=== PATIENT | female | born 1995 | race Caucasian/White ===

== ENCOUNTER 2018-10-27 18:47 | Emergency (ER) | payer MEDICAID, OTHER ==
[~2018-10-27] VITALS: Ht 162.6 cm; Wt 76.4 kg
[~2018-10-27 18:47] MED LIST: PREN-385 PO
[2018-10-27 18:59] VITALS: BP 136/94
--- NOTE | 2018-10-27 19:01 | NUR ---
PT GIVEN A CUP TO PROVIDE URINE SAMPLE.
--- NOTE | 2018-10-27 21:02 | NUR ---
PT AMBULATED TO [facility].
--- NOTE | 2018-10-27 21:05 | NUR ---
23/F PRESENTS TO ED, C/O 04/27 CONSTANT FRONTAL AND POSTERIOR HEADACHE, X3 DAYS. PT REPORTS INTERMITTENT DIZZINESS. 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 PT DENIES TRAUMA, N/V OR LIGHT SENSITIVITY. AOX4, GCS 15, PERRLA, RR EVEN AND UNLABORED. DID NOT TAKE ANY PAIN MEDICATION. DENIES MED HX OR RX.
[2018-10-27] MEDS ORDERED: IBUPROFEN 800 MG TAB PO ONE (22:20)
[2018-10-27 22:48] VITALS: BP 122/80
== END 2018-10-27 22:46 | disposition home or self-care (01) ==
LOC: MED 18:47
DX: R51 Headache (principal); Z79.899 Other long term (current) drug therapy
CPT/HCPCS: 81025; 99282

== ENCOUNTER 2019-04-18 18:12 | Observation (INO) | payer OTHER ==
[~2019-04-18] VITALS: Ht 149.9 cm; Wt 85.8 kg
[2019-04-18 18:19] VITALS: BP 109/59
[2019-04-18 18:53] VITALS: BP 115/72
== END 2019-04-18 20:00 | disposition home health service (06) ==
LOC: MED 18:12 → MLD 18:44 → INTOOBSV 18:44 → MLD 18:51 → UNDODISIN 20:00
PROVIDERS: ADMIT Obstetrics & Gynecology; ATTEND Obstetrics & Gynecology
DX: O26.892 Other specified pregnancy related conditions, second trimester (principal); R10.2 Pelvic and perineal pain; Z3A.22 22 weeks gestation of pregnancy
CPT/HCPCS: 99281; G0378

== ENCOUNTER 2019-06-27 17:48 | Observation (INO) | payer OTHER ==
[~2019-06-27] VITALS: Ht 152.4 cm; Wt 87.5 kg
== END 2019-06-27 20:20 | disposition home or self-care (01) ==
LOC: MLD 17:48
PROVIDERS: ADMIT Obstetrics & Gynecology; ATTEND Obstetrics & Gynecology
DX: O36.8130 Decreased fetal movements, third trimester, not applicable or unspecified (principal); Z3A.30 30 weeks gestation of pregnancy
CPT/HCPCS: 76819; 81000; G0378; Q0092

== ENCOUNTER 2019-08-05 14:21 | Observation (INO) | payer OTHER ==
[~2019-08-05] VITALS: Ht 152.4 cm; Wt 90.7 kg
[2019-08-05 15:03] VITALS: BP 115/62
== END 2019-08-05 19:25 | disposition home or self-care (01) ==
LOC: MLD 14:21
PROVIDERS: ADMIT Obstetrics & Gynecology; ATTEND Obstetrics & Gynecology
DX: O32.2XX0 Maternal care for transverse and oblique lie, not applicable or unspecified (principal); Z3A.37 37 weeks gestation of pregnancy
CPT/HCPCS: 59025; 76805; 81000; G0378; Q0092

== ENCOUNTER 2019-08-08 20:50 | Observation (INO) | payer OTHER ==
[~2019-08-08] VITALS: Ht 152.4 cm; Wt 90.3 kg
== END 2019-08-08 23:00 | disposition home or self-care (01) ==
LOC: MLD 20:50
PROVIDERS: ADMIT Obstetrics & Gynecology; ATTEND Obstetrics & Gynecology
DX: O42.92 Full-term premature rupture of membranes, unspecified as to length of time between rupture and onset of labor (principal); Z3A.38 38 weeks gestation of pregnancy
CPT/HCPCS: 76815; G0378; Q0092

== ENCOUNTER 2019-08-12 16:48 | Inpatient (IN) | payer OTHER ==
[~2019-08-12] VITALS: Ht 152.4 cm; Wt 90.7 kg
[2019-08-12] MEDS ORDERED: OXYTOCIN 10 UNITS/ML VIAL IM SCH (17:20)
[2019-08-12] MEDS ORDERED: CARBOPROST 250 MCG/ML AMP IM PRN (17:20)
[2019-08-12] MEDS ORDERED: PROMETHAZINE 25 MG/ML VIAL IVP PRN (17:20)
[2019-08-12] MEDS ORDERED: NALBUPHINE 10 MG/ML AMP IVP PRN (17:20)
[2019-08-12] MEDS ORDERED: METHYLERGONOVINE 0.2 MG/ML AMP IM PRN (17:20)
[2019-08-12] MEDS ORDERED: AMPICILLIN 2,000 MG in NACL 0.9% MINI-BAG PLUS 100 ML IV SCH (17:35)
[2019-08-12 17:50] LABS: BASOPHILS % (AUTO) 0.4 % (0.0-2.0); EOSINOPHILS % (AUTO) 0.6 % (0.0-4.0); HEMATOCRIT 35.8 % (36-48); HEMOGLOBIN 11.5 g/dL (12.0-16.0); LYMPHOCYTES # (AUTO) 2.2 K/uL (2.5-16.5); LYMPHOCYTES % (AUTO) 28.5 % (20.5-51.1); MEAN CORPUSCULAR HEMOGLOBIN 26 pg (27-31); MEAN CORPUSCULAR HGB CONC 32 g/dL (33-37); MEAN CORPUSCULAR VOLUME 81.4 fL (80-94); MONOCYTES # (AUTO) 0.5 K/uL (0.8-1.0); MONOCYTES % (AUTO) 6.6 % (1.7-9.3); NEUTROPHILS # (AUTO) 4.8 K/uL (1.8-7.7); NEUTROPHILS % (AUTO) 63.9 % (42.2-75.2); PLATELET COUNT (AUTO) 210 K/uL (140-450); RED BLOOD CELL COUNT(AUTO) 4.39 MIL/uL (4.20-5.40); RED CELL DISTRIBUTION WIDTH 15.6 % (11.6-13.7); WHITE BLOOD COUNT (AUTO) 7.6 K/uL (4.8-10.8)
[2019-08-12] MEDS ORDERED: AMPICILLIN 2,000 MG VIAL ONE (17:59)
[2019-08-12 18:00] LABS: ANION GAP 13.6 (8-16); CARBON DIOXIDE 24.1 mmol/L (21-32); CREATININE 0.5 mg/dL (0.6-1.3); POTASSIUM 3.7 mmol/L (3.5-5.1)
[2019-08-12] MEDS: LACTATED RINGERS 1,000 ML IV SCH (18:00)
[2019-08-12 18:06] LABS: ALBUMIN 2.7 g/dL (3.4-5.0); TOTAL BILIRUBIN 0.2 mg/dL (0.0-1.0)
[2019-08-12 18:08] VITALS: BP 108/66
[2019-08-12] MEDS ORDERED: MAG SULF 20 GM/H2O PREMIX DRIP 500 ML IV ONE (19:42)
[2019-08-12] MEDS ORDERED: AMPICILLIN 1,000 MG VIAL ONE (21:36)
[2019-08-12] MEDS: AMPICILLIN 1,000 MG in NACL 0.9% MINI-BAG PLUS 50 ML IV SCH (21:40)
[2019-08-12 21:58] LABS: APPEARANCE,URINE CLEAR (CLEAR); BILIRUBIN,URINE NEGATIVE (NEGATIVE); BLOOD, URINE TRACE-L (NEGATIVE); COLOR,URINE YELLOW (YELLOW); LEUKOCYTE ESTERASE ,URINE NEGATIVE (NEGATIVE); NITRITE, URINE NEGATIVE (NEGATIVE); UGLUCOSE NEGATIVE (NEGATIVE)
[2019-08-12 22:11] LABS: RBC,URINE 0-5 /HPF (0-5)
[2019-08-12 22:12] LABS: WBC,URINE NONE SEEN /HPF (0-5)
[2019-08-13] MEDS ORDERED: TERBUTALINE 1 MG/ML VIAL SUBQ ONE (00:20)
[2019-08-13] MEDS: TERBUTALINE 1 MG/ML VIAL SUBQ SCH ×2 (00:33→01:21)
[2019-08-13] MEDS ORDERED: AMPICILLIN 1,000 MG VIAL ONE ×3 (00:54→08:31)
[2019-08-13] MEDS: AMPICILLIN 1,000 MG in NACL 0.9% MINI-BAG PLUS 50 ML IV SCH ×3 (01:22→08:42)
[2019-08-13] MEDS ORDERED: TERBUTALINE 2.5 MG TAB ONE ×2 (04:01→08:30)
[2019-08-13] MEDS: TERBUTALINE 2.5 MG TAB PO SCH ×2 (04:04→08:38)
[2019-08-13] MEDS: LACTATED RINGERS 1,000 ML IV SCH ×2 (04:04→13:02)
[2019-08-13] MEDS ORDERED: CITRIC ACID/SODIUM CITRATE 30 ML UDC PO SCH (13:20)
[2019-08-13] MEDS ORDERED: CITRIC ACID/SODIUM CITRATE 30 ML UDC ONE (13:22)
[2019-08-13] MEDS ORDERED: PHENYLEPHRINE 10 MG/ML VIAL ONE (15:27)
[2019-08-13] MEDS ORDERED: METOCLOPRAMIDE 10 MG/2 ML INJ VIAL ONE (15:27)
[2019-08-13] MEDS ORDERED: ONDANSETRON 4 MG/2 ML VIAL ONE (15:27)
[2019-08-13] MEDS ORDERED: MORPHINE PRES FREE 10 MG/10 ML AMP IV ONE (15:29)
[2019-08-13] MEDS ORDERED: ceFAZolin 1,000 MG VIAL IVP ONE (15:45)
[2019-08-13] MEDS ORDERED: diphenhydrAMINE 50 MG/ML VIAL ONE (16:03)
[2019-08-13] MEDS ORDERED: OXYTOCIN 20 UNITS/LR PREMIX 1,000 ML IV ONE (16:03)
[2019-08-13] MEDS ORDERED: OXYTOCIN 20 UNITS in LACTATED RINGERS 1,000 ML IV SCH ×2 (16:04→18:12)
[2019-08-13] MEDS ORDERED: ONDANSETRON 4 MG/2 ML VIAL IVP PRN (16:05)
[2019-08-13] MEDS ORDERED: NALOXONE 0.4 MG/ML VIAL IVP PRN ×2 (16:05)
[2019-08-13] MEDS ORDERED: KETOROLAC 30 MG/ML VIAL IVP PRN ×2 (16:05→18:15)
[2019-08-13] MEDS ORDERED: diphenhydrAMINE 50 MG/ML VIAL IVP PRN (16:05)
[2019-08-13] MEDS ORDERED: HYDROmorphone 1 MG/ML AMP IVP PRN (18:15)
[2019-08-13] MEDS ORDERED: MEASLES, MUMPS, AND RUBELLA 1 VIAL SQVAC PRN (18:15)
[2019-08-14] MEDS ORDERED: OXYTOCIN 20 UNITS/LR PREMIX 1,000 ML IV ONE (05:43)
[2019-08-14 08:35] LABS: BASOPHILS % (AUTO) 0.2 % (0.0-2.0); EOSINOPHILS % (AUTO) 0.1 % (0.0-4.0); HEMATOCRIT 32.3 % (36-48); HEMOGLOBIN 10.6 g/dL (12.0-16.0); LYMPHOCYTES # (AUTO) 1.6 K/uL (2.5-16.5); LYMPHOCYTES % (AUTO) 16.3 % (20.5-51.1); MEAN CORPUSCULAR HEMOGLOBIN 27 pg (27-31); MEAN CORPUSCULAR HGB CONC 33 g/dL (33-37); MEAN CORPUSCULAR VOLUME 81.2 fL (80-94); MONOCYTES # (AUTO) 0.7 K/uL (0.8-1.0); MONOCYTES % (AUTO) 6.7 % (1.7-9.3); NEUTROPHILS # (AUTO) 7.4 K/uL (1.8-7.7); NEUTROPHILS % (AUTO) 76.7 % (42.2-75.2); PLATELET COUNT (AUTO) 162 K/uL (140-450); RED BLOOD CELL COUNT(AUTO) 3.98 MIL/uL (4.20-5.40); RED CELL DISTRIBUTION WIDTH 15.8 % (11.6-13.7); WHITE BLOOD COUNT (AUTO) 9.7 K/uL (4.8-10.8)
[2019-08-14] MEDS ORDERED: ACETAMINOPHEN 325 MG TAB PO PRN (22:00)
[2019-08-15] MEDS ORDERED: SODIUM PHOSPHATE 118 ML ENEM RC PRN (09:00)
[2019-08-15] MEDS: SIMETHICONE 80 MG TAB.CHEW PO SCH ×3 (09:23→18:13)
[2019-08-15] MEDS: BISACODYL 5 MG TABEC PO SCH (09:24)
[2019-08-15] MEDS: DOCUSATE SODIUM 100 MG GELCAP PO SCH (09:27)
[2019-08-15] MEDS: IBUPROFEN 600 MG TAB PO PRN (12:46)
[2019-08-15] MEDS ORDERED: INFLUENZA VACCINE QUAD 0.5 ML SYR IMVAC PRN (21:00)
[2019-08-16] MEDS: IBUPROFEN 600 MG TAB PO PRN ×2 (05:48→21:03)
[2019-08-17] MEDS: BISACODYL 5 MG TABEC PO SCH (09:07)
[2019-08-17] MEDS: DOCUSATE SODIUM 100 MG GELCAP PO SCH (09:07)
[2019-08-17] MEDS: SIMETHICONE 80 MG TAB.CHEW PO SCH (09:07)
[2019-08-17] MEDS ORDERED: FERR325E14 PO (13:04)
[2019-08-17] MEDS ORDERED: IBUP-1842 PO (13:06)
[2019-08-17] MEDS ORDERED: IBUP-2213 PO (13:06)
== END 2019-08-17 14:45 | disposition home or self-care (01) | DRG 540 ==
LOC: MFCC 16:48 → MLD 17:37 → MFCC 08-13 16:05
PROVIDERS: ADMIT Obstetrics & Gynecology; ATTEND Obstetrics & Gynecology
PROC: 3E0234Z Introduction of Serum, Toxoid and Vaccine into Muscle, Percutaneous Approach (ICD-10-PCS; 2019-08-13)
PROC: 10D00Z1 Extraction of Products of Conception, Low, Open Approach (ICD-10-PCS; principal; 2019-08-13 14:00)
DX: O34.03 Maternal care for unspecified congenital malformation of uterus, third trimester (principal); R71.0 Precipitous drop in hematocrit; O24.429 Gestational diabetes mellitus in childbirth, unspecified control; O99.824 Streptococcus B carrier state complicating childbirth; O32.1XX0 Maternal care for breech presentation, not applicable or unspecified; O40.3XX0 Polyhydramnios, third trimester, not applicable or unspecified; Q51.3 Bicornate uterus; Z37.0 Single live birth; Z3A.39 39 weeks gestation of pregnancy; Z23 Encounter for immunization
CPT/HCPCS: 36415; 51702; 76815; 80053; 81001; 85025; 86592; 86762; 86886; 86900; 86901; 87086; 87340; 90707; 90715; J0290; J0690; J1200; J2270; J2370; J2405; J2590; J2765; J3105; J3475; J7060; J7120; Q0092

== ENCOUNTER 2020-03-20 14:11 | Emergency (ER) | payer OTHER, SELFPAY ==
[~2020-03-20] VITALS: Ht 152.4 cm; Wt 79.4 kg
[~2020-03-20 14:11] MED LIST changes: +FERR325E14 PO; +IBUP-1842 PO; -PREN-385 PO
[2020-03-20 14:22] VITALS: BP 141/76
--- NOTE | 2020-03-20 14:27 | NUR ---
WAIT AT TENT. REPOTED TO CHARGE NURSE.
[2020-03-20] MEDS ORDERED: ACETAMINOPHEN EXTRA STRENGTH 500 MG TAB PO ONE (15:20)
--- NOTE | 2020-03-20 15:39 | NUR ---
C/O HEADACHE WITH FEVER AND BODYACHES X 2 DAYS DENIES N/V/D---FULL CLEAR SPEECH,
[2020-03-20 15:40] VITALS: BP 132/81
--- NOTE | 2020-03-20 15:41 | NUR ---
Patient discharged with v/s stable. Written and verbal after care instructions given and explained. Patient verbalized understanding. Ambulatory with steady gait. All questions addressed prior to discharge. Advised to follow up with PMD.
== END 2020-03-20 15:41 | disposition home or self-care (01) ==
LOC: EEVIPCON 14:11 → MED 14:11
DX: R03.0 Elevated blood-pressure reading, without diagnosis of hypertension (principal); Z20.828 Contact with and (suspected) exposure to other viral communicable diseases; Z98.890 Other specified postprocedural states; Z79.899 Other long term (current) drug therapy
CPT/HCPCS: 99283; C9803; U0003; 36415

== ENCOUNTER 2022-04-30 17:46 | Emergency (ER) | payer MEDICAID, OTHER ==
[~2022-04-30] VITALS: Ht 152.4 cm; Wt 87.1 kg
[2022-04-30 18:00] VITALS: BP 122/77
--- NOTE | 2022-04-30 18:23 | NUR ---
L&D NURSE DOING HEART TONES IN TRIAGE PER DR DESAI
[2022-04-30 19:00] LABS: BASOPHILS % (AUTO) 0.4 % (0.0-2.0); EOSINOPHILS # (AUTO) 0.1 K/uL (0-0.4); EOSINOPHILS % (AUTO) 0.7 % (0.0-4.0); HEMATOCRIT 40.1 % (36-48); HEMOGLOBIN 13.3 g/dL (12.0-16.0); LYMPHOCYTES # (AUTO) 2.3 K/uL (2.5-16.5); LYMPHOCYTES % (AUTO) 29.1 % (20.5-51.1); MEAN CORPUSCULAR HEMOGLOBIN 28 pg (27-31); MEAN CORPUSCULAR HGB CONC 33 g/dL (33-37); MEAN CORPUSCULAR VOLUME 83.9 fL (80-94); MONOCYTES # (AUTO) 0.4 K/uL (0.8-1.0); MONOCYTES % (AUTO) 5.3 % (1.7-9.3); NEUTROPHILS # (AUTO) 5.1 K/uL (1.8-7.7); NEUTROPHILS % (AUTO) 64.5 % (42.2-75.2); PLATELET COUNT (AUTO) 278 K/uL (140-450); RED BLOOD CELL COUNT(AUTO) 4.78 MIL/uL (4.20-5.40); RED CELL DISTRIBUTION WIDTH 12.5 % (11.6-13.7); WHITE BLOOD COUNT (AUTO) 7.9 K/uL (4.8-10.8)
[2022-04-30 19:26] LABS: BILIRUBIN,URINE NEGATIVE (NEGATIVE); BLOOD, URINE 3+ (NEGATIVE); COLOR,URINE YELLOW (YELLOW); LEUKOCYTE ESTERASE ,URINE TRACE (NEGATIVE); NITRITE, URINE NEGATIVE (NEGATIVE); UGLUCOSE NEGATIVE (NEGATIVE)
[2022-04-30 19:27] LABS: APPEARANCE,URINE HAZY (CLEAR)
[2022-04-30 19:43] LABS: RBC,URINE 20-50 /HPF (0-5)
--- NOTE | 2022-04-30 22:42 | NUR ---
Dr. Murry examining patient.
[2022-04-30] MEDS ORDERED: NITR100C7 PO (23:06)
[2022-04-30 23:15] VITALS: BP 118/68
== END 2022-04-30 23:15 | disposition home or self-care (01) ==
LOC: MED 17:46
DX: O20.0 Threatened abortion (principal); O98.811 Other maternal infectious and parasitic diseases complicating pregnancy, first trimester; R82.71 Bacteriuria; Z3A.12 12 weeks gestation of pregnancy; Z79.899 Other long term (current) drug therapy; Z98.890 Other specified postprocedural states
CPT/HCPCS: 36415; 76801; 81001; 81025; 84702; 85025; 87086; 99284; Q0092

== ENCOUNTER 2023-04-12 22:49 | Emergency (ER) | payer MEDICAID, OTHER ==
[~2023-04-12] VITALS: Ht 152.4 cm; Wt 81.6 kg
[~2023-04-12 22:49] MED LIST changes: +NITR100C7 PO
[2023-04-12 23:00] VITALS: BP 130/87; PULSE 110; RESP 18; TEMP 100.3; O2SAT 100
--- NOTE | 2023-04-12 23:03 | NUR ---
TO LOBBY A/W BED AMBULATORY
[2023-04-13] MEDS ORDERED: ACETAMINOPHEN EXTRA STRENGTH 500 MG TAB PO ONE (00:10)
--- NOTE | 2023-04-13 00:18 | NUR ---
swab collected and given to sasha from lab
[2023-04-13] MEDS ORDERED: NITR100C7 PO (00:42)
[2023-04-13] MEDS ORDERED: IBUP-2213 PO (01:05)
--- NOTE | 2023-04-13 01:05 | NUR ---
temp of 100.8 reported to [facility], states its ok to d/c. pt instructed to retake temp at home and take motrin if needed.
[2023-04-13 01:06] VITALS: BP 128/82; PULSE 109; RESP 16; TEMP 100.8; O2SAT 99
== END 2023-04-13 01:06 | disposition home or self-care (01) ==
LOC: MED 22:49
DX: N39.0 Urinary tract infection, site not specified (principal); B34.9 Viral infection, unspecified; Z79.899 Other long term (current) drug therapy; Z98.890 Other specified postprocedural states; Z20.822 Contact with and (suspected) exposure to COVID-19
CPT/HCPCS: 81002; 81025; 99283

== ENCOUNTER 2023-08-17 19:23 | Emergency (ER) | payer OTHER ==
[~2023-08-17 19:23] MED LIST changes: +IBUP-2213 PO
== END 2023-08-17 20:40 | disposition left against medical advice (07) ==
LOC: MED 19:23
DX: M54.50 Low back pain, unspecified (principal); Z53.21 Procedure and treatment not carried out due to patient leaving prior to being seen by health care provider